=== PATIENT | female | born 1980 | race Caucasian/White ===

== ENCOUNTER 2018-07-21 12:29 | Emergency (ER) | payer MEDICAID ==
[2018-07-21 12:40] VITALS: BP 122/73
--- NOTE | 2018-07-21 12:49 | UC ---
Back Pain HPI - HPI Summary HPI Summary: A 37 y/o F presents to E with c/o lower R-sided back pain onset three days ago. Yesterday and this AM, her back pain began radiating around to the R-side of her abd. Associated sx: mild nausea, diarrhea. Denies fever, chills, L-sided abd pain, dysuria, vaginal discharge. She has no concerns for STI or . Pt has a PMHx kidney infections and states this pain feels similar. Pt took IBP to no relief. SHx: cholecystectomy. - History of Current Complaint Chief Complaint: UCBackPain Stated Complaint: BACK PAIN Time Seen by Provider: 07/21/18 12:46 Hx Obtained From: Patient Onset/Duration: Gradual Onset, Lasting Days - three days ago, Still Present Timing: Constant Severity Initially: Moderate Severity Currently: Severe Pain Intensity: 8 - at bedside Pain Scale Used: 0-10 Numeric Back Pain: Is Discrete @ - lower back, Radiates To - abd Aggravating Factor(s): Other - lying supine Alleviating Factor(s): Nothing Associated Signs And Symptoms: Positive: Other - pos: mild nausea; neg: chills, dysuria, vaginal discharge. Negative: Fever - Allergies/Home Medications Allergies/Adverse Reactions: Allergies Allergy/AdvReac Type Severity Reaction Status Date / Time erythromycin base Allergy Rash Verified 07/21/18 12:40 Sulfa (Sulfonamide Allergy Swelling Verified 07/21/18 12:40 Antibiotics) Of Face,Lips,& Throat Home Medications: Home Medications Fluticasone Propionate [Flonase Allergy Relief] 9.9 ml NS 07/21/18 [History] Ibuprofen 800 mg PO 07/21/18 [History] L.acidoph,Paracasei, B.lactis [Probiotic] 1 each PO 07/21/18 [History] Multivitamin [Multivitamins] 1 cap PO 07/21/18 [History] PMH/Surg Hx/FS Hx/Imm Hx Previously Healthy: No Other Cardiovascular History: neg: [place] Other Respiratory History: neg: COPD Other GI/ History: pos: kidney infections - Surgical History Surgical History: Yes Surgery Procedure, Year, and Place: gall bladder - Family History Known Family History: Positive: Blood Disorder - mother - blood clotting disorder, pt has been tested and does not have, Other - breast CA, stroke 2x mom , Negative: Diabetes - Social History Occupation: Student Lives: Dormitory/Roommates Alcohol Use: Occasionally Substance Use Type: None Smoking Status (MU): Never Smoked Tobacco Type: Cigarettes Review of Systems Constitutional: Other - neg: fever, chills Gastrointestinal: Abdominal Pain - pos: R-sided abd pain radiating from back; no L-sided abd pain, Diarrhea, Nausea Genitourinary: Other - neg: dysuria, vaginal discharge Musculoskeletal: Other: - pos: lower back pain All Other Systems Reviewed And Are Negative: Yes Physical Exam - Summary Physical Exam Summary: General: well-appearing, mild pain distress Skin: warm, color reflects adequate perfusion, dry Head: normal Eyes: EOMI, DARIA ENT: normal Neck: supple, nontender Respiratory: CTA, breath sounds present Cardiovascular: RRR Abdomen: soft; tenderness to percussion of R flank, tenderness to palpation of RLQ Bowel: hypoactive bowel sounds Musculoskeletal: normal, strength/ROM intact Neurological: sensory/motor intact, A&O x3 Psychological: affect/mood appropriate Triage Information Reviewed: Yes Vital Signs: Initial Vital Signs Temp 98.9 F 07/21/18 12:37 Pulse 96 07/21/18 12:37 Resp 18 07/21/18 12:37 BP 122/73 07/21/18 12:37 Pulse Ox 100 07/21/18 12:37 Vital Signs Reviewed: Yes Re-Evaluation - Re-Evaluation 1 Re-Evaluation Time: 13:15 Change: Unchanged Comment: Discussing UA results with pt. Pt voiced understanding. Back Pain Course/Dx - Course Course Of Treatment: BP noted. Medications reviewed. Allergies noted. RECOMMENDED EVALUATION IN THE EMERGENCY DEPARTMENT NOW. - Differential Dx/Diagnosis Provider Diagnoses: RIGHT FLANK PAIN. RLQ ABDOMINAL PAIN Discharge - Sign-Out/Discharge Documenting (check all that apply): Patient Departure - DC All imaging exams completed and their final reports reviewed: No Studies - Discharge Plan Condition: Stable Disposition: HOME-RECOMMEND TO ED Patient Education Materials: Acute Abdominal Pain (ED), Flank Pain (ED) Referrals: [facility] [Outside] Additional Instructions: GO DIRECTLY TO THE EMERGENCY DEPARTMENT FOR FURTHER EVALUATION. - Billing Disposition and Condition Condition: STABLE Disposition: Home-Recommend to ED - Attestation Statements Document Initiated by Scribe: Yes Documenting Scribe: [facility] Provider For Whom Scribe is Documenting (Include Credential): Marcial Frazier MD Scribe Attestation: IEun, scribed for Marcial Frazier MD on 07/21/18 at 1415. Scribe Documentation Reviewed: Yes Provider Attestation: The documentation as recorded by the scribeEun accurately reflects the service I personally performed and the decisions made by me, Marcial Frazier MD Lab Results - Lab Results Lab Results: 07/21/18 13:08 POC Urine Color Yellow POC Urine Clarity Clear POC Urine pH 6.0 POC Ur Specif [place] <= 1.005 L POC Urine Protein Negative POC Ur Glucose (UA) Negative POC Urine Ketones 1+ A POC Urine Blood Negative POC Urine Nitrite Negative POC Urine Bilirubin Negative POC Urine Urobilinogen 0.2 POC U Leukocyte Esteras Negative
== END 2018-07-21 13:26 | disposition home health service (06) ==
LOC: UCEAST 12:29
DX: R10.31 Right lower quadrant pain (principal); R11.0 Nausea; M54.2 Cervicalgia; R19.7 Diarrhea, unspecified; Z88.1 Allergy status to other antibiotic agents; Z88.2 Allergy status to sulfonamides; Z90.49 Acquired absence of other specified parts of digestive tract
CPT/HCPCS: 81003; 84702; 99201; G0463

== ENCOUNTER 2018-07-21 13:35 | Emergency (ER) | payer MEDICAID ==
[2018-07-21] MEDS ORDERED: Ondansetron INJ* 2 MG/ML VIAL IV ONE (15:01)
[2018-07-21] MEDS ORDERED: NS 0.9% 1000 ML* 1,000 ML IV ONE (15:01)
[2018-07-21] MEDS ORDERED: Morphine VIAL* 10 MG/ML 1 ML VIAL IV ONE (15:01)
--- NOTE | 2018-07-21 15:17 | ED ---
Abdominal Pain/Female - HPI Summary HPI Summary: A 37 y/o female accompanied by a friend presents to ED c/o constant RLQ abdominal pain reaching 8/10 in severity. Currently, the patient is still experiencing severe abdominal pain which is consistently getting worse. As per triage, "was referred here from [place] she is here to er/o an appendicidis.onset 3 days ago of l flank pain with radiation to her l groin pain getting progressively worse". According to the patient she has been experiencing constant RLQ abdominal pain that has been progressively getting worse since. She noted that she went to earlier and was referred to [facility] ED. Additional symptoms include nausea (started this AM), denies vomiting, vaginal discharge, vaginal bleeding or hematuria. No other known medical problems. PMHx of cholecystectomy (5 years ago). FHx of breast cancer and CVA and blood disorder. SHx of no smoking or ETOH. Pt would like pain medication. - History of Current Complaint Chief Complaint: EDAbdPain Stated Complaint: ABD PAIN RT SIDE Time Seen by Provider: 07/21/18 14:55 Hx Obtained From: Patient Onset/Duration: Sudden Onset, Lasting Days, Still Present, Worse Since Timing: Constant Severity Initially: Severe Severity Currently: Severe Pain Intensity: 8 Pain Scale Used: 0-10 Numeric Location: Discrete At: RLQ Radiates: No Aggravating Factor(s): Nothing Alleviating Factor(s): Nothing Associated Signs and Symptoms: Positive: Nausea. Negative: Vomiting Allergies/Adverse Reactions: Allergies Allergy/AdvReac Type Severity Reaction Status Date / Time erythromycin base Allergy Rash Verified 07/21/18 12:40 Sulfa (Sulfonamide Allergy Swelling Verified 07/21/18 12:40 Antibiotics) Of Face,Lips,& Throat PMH/Surg Hx/FS Hx/Imm Hx Endocrine/Hematology History: Denies: Hx Diabetes Cardiovascular History: Denies: Hx Hypertension - Surgical History Surgery Procedure, Year, and Place: cholecystectomy. Infectious Disease History: No Infectious Disease History: Denies: Traveled Outside the [place] in Last 30 Days - Family History Known Family History: Positive: Blood Disorder - mother - blood clotting disorder, pt has been tested and does not have, Other - breast CA, stroke 2x mom , Negative: Diabetes - Social History Alcohol Use: Occasionally Substance Use Type: Reports: None Smoking Status (MU): Never Smoked Tobacco Type: Cigarettes Review of Systems Negative: Fever Positive: Abdominal Pain, Nausea. Negative: Vomiting Negative: dysuria, discharge, hematuria All Other Systems Reviewed And Are Negative: Yes Physical Exam - Summary Physical Exam Summary: Appearance: Well appearing, no pain distress Skin: warm, dry, reflects adequate perfusion Head/face: normal Eyes: EOMI, DARIA ENT: normal Neck: supple, non-tender Respiratory: CTA, breath sounds present Cardiovascular: RRR, pulses symmetrical Abdomen: soft, RLQ tenderness, rebound Bowel: present Musculoskeletal: normal, strength/ROM intact Neuro: normal, sensory motor intact, A&Ox3 Triage Information Reviewed: Yes Vital Signs On Initial Exam: Initial Vitals Temp Pulse Resp BP Pulse Ox 98.5 F 109 18 118/73 98 07/21/18 14:05 07/21/18 14:05 07/21/18 14:05 07/21/18 14:05 07/21/18 14:05 Vital Signs Reviewed: Yes Diagnostics - Vital Signs Vital Signs Temp Pulse Resp BP Pulse Ox 07/21/18 14:05 98.5 F 109 18 118/73 98 - Laboratory Result Diagrams: 07/21/18 15:22 07/21/18 16:26 Lab Statement: Any lab studies that have been ordered have been reviewed, and results considered in the medical decision making process. - CT CT A/P CT Interpretation Completed By: Radiologist - IMPRESSION: 1. NO EVIDENCE FOR ACUTE FINDING. 2. HEPATIC STEATOSIS. 3. STATUS POST CHOLECYSTECTOMY. 4. ENLARGED HETEROGENEOUS UTERUS WITH PARTIALLY CALCIFIED MASS SUGGESTIVE OF A FIBROID UTERUS. RECOMMEND A OUTPATIENT FOLLOW-UP OUTPATIENT PELVIC ULTRASOUND FOR FURTHER EVALUATION. ED PHYSICIAN REVIEWED THIS RADIOLOGY REPORT. Abdominal Pain Fem Course/Dx - Course Course Of Treatment: A 37 y/o female accompanied by a friend presents to ED c/o constant RLQ abdominal pain reaching 8/10 in severity. Currently, the patient is still experiencing severe abdominal pain which is consistently getting worse. A CT A/P revealed to be within normal limits. Blood work and UA was also done and to be within normal limits. In the ED course, the patient recieved Omnipaque, Toradol, Morphine, Zofran and IV fluids. Patient will be discharged with a diagnosis of abdominal pain and fibroid uterus. Patient will be discharged home with a prescription of Naproxen. Patient is to follow up with PCP in 2-3 days. Patient is agreeable with this plan. - Diagnoses Differential Diagnosis: Positive: Appendicitis, Diverticulitis, Urinary Tract Infection Provider Diagnoses: Abdominal pain, Fibroid uterus Discharge - Sign-Out/Discharge Documenting (check all that apply): Patient Departure - DISCHARGE - Discharge Plan Condition: Stable Disposition: HOME Prescriptions: Naproxen [Naprosyn 500 mg tab] 500 mg PO TID #20 tablet MDD 3 Patient Education Materials: Acute Abdominal Pain (ED) Forms: *School Release Referrals: [facility] [Outside] - 3 Days Additional Instructions: FOLLOW UP WITH PRIMARY CARE PHYSICIAN OR [facility] IN 2-3 DAYS. TAKE MEDICATION PRESCRIBED RETURN TO ED FOR ANY NEW OR WORSENING SYMPTOMS. - Billing Disposition and Condition Condition: STABLE Disposition: Home - Attestation Statements Document Initiated by Nicholas: Yes Documenting Scribe: Romie Nowak Provider For Whom Nicholas is Documenting (Include Credential): Jose Veliz Scribe Attestation: Romie Maria scribed for Jose Veliz on 07/21/18 at 1837. Scribe Documentation Reviewed: Yes Provider Attestation: The documentation as recorded by the Romie lopez accurately reflects the service I personally performed and the decisions made by Jose roberson
[2018-07-21 15:44] LABS: Urine Appearance Clear; Urine Blood Negative (Negative); Urine Color Yellow; Urine Ketones 2+ (Negative); Urine Protein Negative (Negative); Urine Specific Gravity 1.014 (1.010-1.030); Urine Urobilinogen Negative (Negative)
[2018-07-21 16:20] LABS: ABS Basophils 0 10^3/ul (0-0.2); ABS Eosinophils 0 10^3/ul (0-0.6); ABS Lymphocytes 0.8 10^3/ul (1.0-4.8); ABS Monocytes 0.7 10^3/ul (0-0.8); ABS Nucleated RBC 0 10^3/ul; Eosinophil % 0.3 % (0-6); Hematocrit 43 % (35-47); Hemoglobin 14.6 g/dl (12.0-16.0); Lymphocyte % 6.4 % (25-47); Mean Corpuscular HGB Conc 34 g/dl (31-36); Mean Corpuscular Hemoglobin 30 pg (27-31); Mean Corpuscular Volume 88 fL (80-97); Mean Platelet Volume 7.9 um3 (7.4-10.4); Nucleated Red Blood Cells % 0.1; Platelet Count 377 10^3/ul (150-450); Red Blood Count 4.86 10^6/ul (4.00-5.40); Red Cell Distribution Width 13 % (10.5-15); White Blood Count 12.5 10^3/ul (3.5-10.8)
[2018-07-21 16:24] LABS: EGFR Non-African American 109.8 (>60)
[2018-07-21] MEDS ORDERED: Iohexol 300* (CONTRAST) 10 ML SDV IV ONE (17:07)
--- NOTE | 2018-07-21 17:37 | RAD ---
INDICATION: Appendicitis. COMPARISON: There are no relevant prior studies available for comparison. TECHNIQUE: A CT scan of the abdomen and pelvis was performed with intravenous and with oral contrast following intravenous injection of 72 ml of Omnipaque 300 nonionic contrast. Contiguous axial sections were obtained from the lung bases through the symphysis pubis. Images were reconstructed in the coronal and sagittal planes. FINDINGS: There is mild dependent bilateral lower lobe subsegmental atelectasis. No pleural effusion is present. The liver and spleen are normal in size. The liver is decreased in attenuation consistent with fatty infiltration. No significant focal abnormality is seen. The patient is status post cholecystectomy. The pancreas appears to be within normal limits. The kidneys and adrenal glands are normal in size. No hydronephrosis is seen. No significant focal renal abnormality is seen. The aorta is normal in caliber and demonstrates homogeneous contrast opacification. No significant enlarged retroperitoneal lymph nodes are seen. The stomach, small and large bowel appear nondistended. The appendix is within normal limits. There is mild sigmoid diverticulosis. There is no evidence for diverticulitis or colitis. There is a small periumbilical hernia containing fat. The uterus is anteverted in position enlarged, heterogeneous in density with a partially calcified mass in the posterior body and fundus of the uterus likely representing a fibroid uterus. No free intraperineal air or fluid is seen. No significant focal osseous abnormality is seen. IMPRESSION: 1. NO EVIDENCE FOR ACUTE FINDING. 2. HEPATIC STEATOSIS. 3. STATUS POST CHOLECYSTECTOMY. 4. ENLARGED HETEROGENEOUS UTERUS WITH PARTIALLY CALCIFIED MASS SUGGESTIVE OF A FIBROID UTERUS. RECOMMEND A OUTPATIENT FOLLOW-UP OUTPATIENT PELVIC ULTRASOUND FOR FURTHER EVALUATION.
[2018-07-21] MEDS ORDERED: Ketorolac INJ* 30 MG/ML 1 ML VIAL IV PUSH ONE (17:44)
[2018-07-21] MEDS ORDERED: Ketorolac INJ* 30 MG/ML 1 ML VIAL ONE (17:45)
[2018-07-21 18:27] VITALS: BP 112/61
== END 2018-07-21 18:26 | disposition home or self-care (01) ==
LOC: ED 13:35
DX: R10.31 Right lower quadrant pain (principal); D25.9 Leiomyoma of uterus, unspecified; K76.0 Fatty (change of) liver, not elsewhere classified; Z90.49 Acquired absence of other specified parts of digestive tract; Z88.3 Allergy status to other anti-infective agents; Z88.2 Allergy status to sulfonamides
CPT/HCPCS: 36415; 74177; 80053; 81003; 83605; 83690; 84702; 85025; 85730; 96374; 96375; 99283; J1885; J2270; J2405; Q9967

== ENCOUNTER → 2018-07-28 03:35 | Emergency (ER) | payer MEDICAID ==
[~2018-07-28 03:35] MED LIST: Al Hydrox/Mg Hydrox/Simet LIQ* 30 ML UDC PO ONE; Lidocaine 2% VISCOUS* 15 ML UDC PO ONE; Metoclopramide IV* 5 MG/ML 2 ML VIAL IV SLOW PU ONE; Morphine INJ* 2 MG/ML 1 ML SYRINGE (TWO MG - NEW SYRINGE VERSION) IV ONE; NS 0.9% 1000 ML* 1,000 ML IV ONE; Pantoprazole IV* 40 MG IV ONE
--- NOTE | 2018-07-28 03:51 | ED ---
Abdominal Pain/Female - HPI Summary HPI Summary: This patient is a 37 year old F presenting to [facility] with a chief complaint of intermittent mid abdominal pain radiating to RUQ since yesterday. She reports that it starts out like a burning sensation and turns into a ripping sensation. The patient rates the pain 7/10 in severity currently. Symptoms slightly alleviated by sitting upright. Patient took an antacid in response to the pain yesterday, but it was ineffective. Patient reports nausea. Patient denies vomiting, diarrhea, urinary symptoms, and fever. She was here on 2017 for abdominal pain, for which she was diagnosed with fibroids. Patient reports that the abdominal pain this time is more intense than the pain from last week and slightly different. Her last bowel movement as [employer] and had loose but normal stool. She has a PSHx of cholecystectomy and is not on any regular medications. - History of Current Complaint Chief Complaint: EDAbdPain Stated Complaint: ABD PAIN Hx Obtained From: Patient Onset/Duration: Sudden Onset, Lasting Days - Since yesterday, Still Present Timing: Intermittent Episode Lasting Severity Initially: Severe Severity Currently: Severe Pain Intensity: 9 Pain Scale Used: 0-10 Numeric Location: Epigastric Radiates: Yes Radiates to: Other - RUQ Character: Burning - and then turns into a "ripping" sensation Alleviating Factor(s): Position - Sitting upright Associated Signs and Symptoms: Positive: Nausea. Negative: Fever, Urinary Symptoms, Vomiting, Diarrhea Allergies/Adverse Reactions: Allergies Allergy/AdvReac Type Severity Reaction Status Date / Time erythromycin base Allergy Rash Verified 07/28/18 03:42 Sulfa (Sulfonamide Allergy Swelling Verified 07/28/18 03:42 Antibiotics) Of Face,Lips,& Throat PMH/Surg Hx/FS Hx/Imm Hx Endocrine/Hematology History: Denies: Hx Diabetes Cardiovascular History: Denies: Hx Hypertension - Surgical History Surgery Procedure, Year, and Place: cholecystectomy. Infectious Disease History: No Infectious Disease History: Denies: Traveled Outside the [place] in Last 30 Days - Family History Known Family History: Positive: Blood Disorder - mother - blood clotting disorder, pt has been tested and does not have, Other - breast CA, stroke 2x mom , Negative: Diabetes - Social History Lives: With Family Alcohol Use: Occasionally Substance Use Type: Reports: None Smoking Status (MU): Never Smoked Tobacco Type: Cigarettes Review of Systems Negative: Fever Positive: Abdominal Pain - Epigastric pain radiating to RUQ, Nausea. Negative: Vomiting, Diarrhea Negative: other - Denies any urinary symptoms All Other Systems Reviewed And Are Negative: Yes Physical Exam - Summary Physical Exam Summary: VITAL SIGNS: Reviewed. GENERAL: Patient is a well-developed and nourished FEMALE who is lying comfortable in the stretcher. Patient is not in any acute respiratory distress. HEAD AND FACE: No signs of trauma. No ecchymosis, hematomas or skull depressions. No sinus tenderness. EYES: PERRLA, EOMI x 2, No injected conjunctiva, no nystagmus. EARS: Hearing grossly intact. Ear canals and tympanic membranes are within normal limits. MOUTH: Oropharynx within normal limits. NECK: Supple, trachea is midline, no adenopathy, no JVD, no carotid bruit, no c- spine tenderness, neck with full ROM. CHEST: Symmetric, no tenderness at palpation LUNGS: Clear to auscultation bilaterally. No wheezing or crackles. CVS: Regular rate and rhythm, S1 and S2 present, no murmurs or gallops appreciated. ABDOMEN: Soft, non-tender. Epigastric tenderness and mild RUQ tenderness EXTREMITIES: FROM in all major joints, no edema, no cyanosis or clubbing. NEURO: Alert and oriented x 3. No acute neurological deficits. Speech is normal and follows commands. SKIN: Dry and warm Triage Information Reviewed: Yes Vital Signs On Initial Exam: Initial Vitals Temp Pulse Resp BP Pulse Ox 99.8 F 106 16 127/80 100 07/28/18 03:35 07/28/18 03:35 07/28/18 03:35 07/28/18 03:35 07/28/18 03:35 Vital Signs Reviewed: Yes Diagnostics - Vital Signs Vital Signs Temp Pulse Resp BP Pulse Ox 07/28/18 03:35 99.8 F 106 16 127/80 100 - Laboratory Result Diagrams: 07/28/18 04:13 07/28/18 04:13 Lab Statement: Any lab studies that have been ordered have been reviewed, and results considered in the medical decision making process. Re-Evaluation - Re-Evaluation 1 Re-Evaluation Time: 05:16 Change: Improved Abdominal Pain Fem Course/Dx - Course Course Of Treatment: This patient is a 37 year old F presenting to [facility] with a chief complaint of intermittent mid abdominal pain radiating to RUQ since yesterday. She reports that it starts out like a burning sensation and turns into a ripping sensation. The patient rates the pain 7/10 in severity currently. Symptoms slightly alleviated by sitting upright. Patient took an antacid in response to the pain yesterday, but it was ineffective. Patient reports nausea. Patient denies vomiting, diarrhea, urinary symptoms, and fever. She was here on 07/21/2018 for abdominal pain, for which she was diagnosed with fibroids. Patient reports that the abdominal pain this time is more intense than the pain from last week and slightly different. Her last bowel movement as [employer] and had loose but normal stool. She has a PSHx of cholecystectomy and is not on any regular medications. All bloodwork and laboratory resulst were normal except for Terry % (Auto) of 8.2 H. Patient will be discharged with a dx of GERD and gastritis. - Diagnoses Provider Diagnoses: GERD (gastroesophageal reflux disease), Gastritis Discharge - Sign-Out/Discharge Documenting (check all that apply): Patient Departure - D/C - Discharge Plan Condition: Stable Disposition: HOME Prescriptions: Pantoprazole TAB (NF) [Protonix TAB (NF)] 40 mg PO DAILY #30 tab Patient Education Materials: Gastritis (ED), Gastroesophageal Reflux Disease ( ED) Referrals: No Primary Care Phys,NOPCP [Primary Care Provider] - Additional Instructions: RETURN TO THE EMERGENCY DEPARTMENT FOR CHANGING OR WORSENING SYMPTOMS. FOLLOW UP WITH PCP IN 1-2 DAYS. - Attestation Statements Document Initiated by Scribe: Yes Documenting Scribe: Carlos Nicholas Provider For Whom Scribe is Documenting (Include Credential): Saad Hazel MD Scribe Attestation: Carlos Maria, scribed for Saad Hazel MD on 07/28/18 at 0525.
[2018-07-28 04:20] LABS: ABS Basophils 0 10^3/ul (0-0.2); ABS Eosinophils 0.1 10^3/ul (0-0.6); ABS Lymphocytes 2.4 10^3/ul (1.0-4.8); ABS Monocytes 0.7 10^3/ul (0-0.8); ABS Neutrophils 4.9 10^3/ul (1.5-7.7); ABS Nucleated RBC 0 10^3/ul; Eosinophil % 1.7 % (0-6); Hematocrit 39 % (35-47); Hemoglobin 13.7 g/dl (12.0-16.0); Lymphocyte % 29.1 % (25-47); Mean Corpuscular HGB Conc 35 g/dl (31-36); Mean Corpuscular Hemoglobin 30 pg (27-31); Mean Corpuscular Volume 86 fL (80-97); Mean Platelet Volume 7.4 um3 (7.4-10.4); Nucleated Red Blood Cells % 0.1; Platelet Count 368 10^3/ul (150-450); Red Blood Count 4.55 10^6/ul (4.00-5.40); Red Cell Distribution Width 13 % (10.5-15); White Blood Count 8.1 10^3/ul (3.5-10.8)
[2018-07-28 04:27] LABS: INR 0.97 (0.77-1.02)
[2018-07-28 04:36] LABS: EGFR Non-African American 100.2 (>60)
[2018-07-28 05:21] LABS: Urine Appearance Clear; Urine Blood Negative (Negative); Urine Color Straw; Urine Ketones Negative (Negative); Urine Protein Negative (Negative); Urine Red Blood Cell Trace(0-2/hpf) (Absent); Urine Specific Gravity 1.008 (1.010-1.030); Urine Urobilinogen Negative (Negative); Urine White Blood Cell Trace(0-5/hpf) (Absent)
[2018-07-28 05:33] VITALS: BP 125/83
== END | disposition home or self-care (01) ==
LOC: ED 03:35
DX: K21.9 Gastro-esophageal reflux disease without esophagitis (principal); K29.70 Gastritis, unspecified, without bleeding; R11.0 Nausea; R10.11 Right upper quadrant pain
CPT/HCPCS: 36415; 80053; 81003; 81015; 82150; 83690; 83735; 84702; 85025; 85610; 85730; 86140; 87086; 96361; 96374; 99282; A9270-GY; J2270; J2765